=== PATIENT | male | born 1955 | race Two or more races ===

== ENCOUNTER 2024-08-22 19:12 | Emergency (ER) | payer OTHER ==
[~2024-08-22] VITALS: Ht 203.2 cm; Wt 135.9 kg
--- NOTE | 2024-08-22 19:48 | ED.PDOC ---
Keily. trauma (HPI) HPI Comments This patient is a very pleasant 69 y.o male presents to the ED for an evaluation of multiple lacerations and abrasions s/p fall today. Patient reports a trip and fall, fell face forward onto asphalt and concrete. Patient presents with laceration to right wrist, cleaned and wrapped upon ED arrival, an abrasion to nose bridge and tear to the left upper eyebrow. Patient denies any LOC, states head/face pain is at a 1/10 at this time. Patient is up to date with tetanus vaccine. Chief Complaint: Fall Injury Time Seen by MD: 19:40 Reviewed notes: Nurses Notes, Medications, Allergies Allergies: Coded Allergies: NO KNOWN ALLERGIES (Unverified , 08/22/24) Information Source: Patient Mode of Arrival: Ambulatory Severity: Moderate Timing: Hours Duration: Since onset Prehospital treatment: None Location: (R) Wrist Location of laceration: Other (Right wrist) Mechanism: Fall Associated signs and symtoms: None Past Medical History PAST MEDICAL HISTORY: Denies Surgical History: Denies all surgeries Family History Family History: Reviewed,noncontributory to illness Social History Smoker: Non-Smoker Alcohol: Denies ETOH Use Drugs: Denies Drug Use Lives In: Home Constitutional: denies: chills, diaphoresis, fatigue, fever, malaise, sweats, weakness, others EENTM: denies: blurred vision, double vision, ear bleeding, ear discharge, ear drainage, ear pain, ear ringing, eye pain, eye redness, hearing loss, mouth pain, mouth swelling, nasal discharge, nose bleeding, nose congestion, nose pain, photophobia, tearing, throat pain, throat swelling, voice changes, others Respiratory: denies: cough, hemoptysis, orthopnea, SOB at rest, shortness of breath, SOB with excertion, stridor, wheezing, others Cardiovascular: denies: chest pain, dizzy spells, diaphoresis, Dyspnea on exertion, edema, irregular heart beat, left arm pain, lightheadedness, palpitations, PND, syncope, others Gastrointestinal: denies: abdomen distended, abdominal pain, blood streaked bowels, constipated, diarrhea, dysphagia, difficulty swallowing, hematemesis, melena, nausea, poor appetite, poor fluid intake, rectal bleeding, rectal pain, vomiting, others Genitourinary: denies: burning, dysuria, flank pain, frequency, hematuria, incontinence, penile discharge, penile sore, pain, testicle pain, testicle swelling, urgency, others Neurological: denies: dizziness, fainting, headache, left sided numbness, left sided weakness, numbness, paresthesia, pre-existing deficit, right sided numbness, right sided weakness, seizure, speech problems, tingling, tremors, weakness, others Musculoskeletal: denies: back pain, gout, joint pain, joint swelling, muscle pain, muscle stiffness, neck pain, others Integumetry: reports: laceration (Right wrist), others (nose bridge abrasion ); denies: bruises, change in color, change in hair/nails, dryness, lesions, lumps, rash, wounds Allergic/Immunocompromised: denies: Difficulty Healing, Frequent Infections, Hives, Itching, others Hematologic/Lymphatic: denies: anemia, blood clots, easy bleeding, easy bruising, swollen glands, others Endocrine: denies: excessive hunger, excessive sweating, excessive thirst, excessive urination, flushing, intolerance to cold, intolerance to heat, unexplained weight gain, unexplained weight loss, others Psychiatric: denies: anxiety, bipolar disorder, depression, hopeless, panic disorder, schizophrenia, sleepless, suicidal, others All Other Systems: Reviewed and Negative Physical Exam General Appearance: Mild Distress (Due to right wrist pain.), Normal HEENT: Head (Patient displays a small half-dollar sized abrasion to the central forehead with localized edema and erythema. No skull depressions or deformities.), Normal ENT Inspection, Pharynx Normal, TMs Normal Neck: Full Range of Motion, Non-Tender, Normal, Normal Inspection Respiratory: Chest Non-Tender, Lungs Clear, No Accessory Muscle Use, No Respiratory Distress, Normal Breath Sounds Cardiovascular: No Edema, No JVD, No Murmur, No Gallop, Normal Peripheral Pulses, Regular Rate/Rhythm Breast Exam: Deferred Gastrointestinal: No Organomegaly, Non Tender, No Pulsatile Mass, Normal Bowel Sounds, Soft Genitalia: Deferred Pelvic: Deferred Rectal: Deferred Extremities: Other (Right wrist reveals a 4 cm deep laceration to the lateral aspect of the ventral wrist. No tendon involvement. No active bleed. Distal neurovascularly intact. Full range of motion displayed.) Musculoskeletal : Apperance: Normal Neurologic: Alert, No Motor Deficits, Normal Affect, Normal Mood, No Sensory Deficits Cerebellar Function: Normal Reflexes: Normal Skin: Lacerations (right wrist, left eyebrow and abrasion to the nose bridge ) Lymphatic: No Adenopathy Was a procedure done? Was a procedure done?: Yes Sedation Sedation?: No Other Procedure Notes 8 cc of 1% lidocaine was utilized for local anesthesia of the right wrist. Sterile field was placed. Copious irrigation performed. Eight 4-0 Ethilon sutures were utilized for wound approximation. Sutures were placed in a simple interrupted fashion. Minimal blood loss. Patient tolerated procedure well. Topical antibiotics, clean dressing and splint applied. Differential Diagnosis Multiple Trauma: Closed Head Injury, Abrasions, Contusion, Hematoma, Laceration, Other (Wrist fracture) X-Ray, Labs, Meds, VS Vital Signs Date Time Temp Pulse Resp B/P (MAP) Pulse Ox O2 Delivery O2 Flow Rate FiO2 08/22/24 21:57 98.2 95 17 118/77 (91) 96 98.2 08/22/24 21:57 95 17 96 Room Air 08/22/24 19:30 98.7 108 18 100/70 (80) 96 Current Medications Medications (Trade) Dose Ordered Sig/Heena Route Start Time Stop Time Status Last Admin Neomycin/ Polymyxin/ Bacitracin (Triple Antibiotic) 1 applic ONCE ONCE TOP 08/22/24 21:30 08/22/24 21:31 DC 08/22/24 21:33 X-Ray, Labs, Meds, VS Comment All studies performed the ED were evaluated by me personally. Imaging studies of right wrist were unremarkable for any fractures. Patient sustained a head contusion and wrist laceration. Advised patient utilize antibiotics as directed until completion as well as pain medication as needed. Patient should return to ED or primary care provider in 10 days for re-evaluation and probable suture removal. Time of 1ST Reevaluation: 22:23 Reevaluation 1ST: Improved Consultation: PCP Patient Education/Counseling: Diagnosis, Treatment, Prognosis Family Education/Counseling: Diagnosis, Treatment, No Family Present Departure 1 Departure Time of Disposition: 22:23 Impression: Primary Impression: Fall Additional Impressions: Head trauma Forehead contusion Wrist laceration Wrist sprain Disposition: HOME / SELF CARE / HOMELESS Condition: Stable Additional Instructions: Advise utilizing antibiotics as directed until completion as well as pain medication as needed. Patient should return to primary care provider or ED in 10 days for re-evaluation and probable suture removal. e-Prescriptions Ibuprofen Micronized (Ibuprofen) 800 Mg Tab 800 MG PO Q8HP PRN, #20 TAB Prov: CECELIA WALKER PAC 08/22/24 Cephalexin (KEFLEX CAPSULE) 250 Mg Cp 1 CAP PO QID for 7 Days, #28 CAP Prov: CECELIA WALKER PAC 08/22/24 Discharged With: Self, Friend Critical Care Note Critical Care Time?: No Stability Stability form required: No I personally scribed for CECELIA WALKER PAC ([email or web address]) on 08/22/24 at 19:48. Electronically submitted by Rima Ruth ([facility]). CECELIA WALKER PAC Aug 22, 2024 19:48
[2024-08-22] MEDS: LIDOCAINE 1% HCL (LOCAL ANESTH.) INJ 20ML MDV ID ONE (20:52)
[2024-08-22] MEDS: NEOMYCIN-BACITRACIN-POLYM UNITDOSE PKG TOP OINT TOP ONE (21:33)
--- NOTE | 2024-08-22 21:52 | DVH ---
EXAM: XY R WRIST 3+ VIEW XRAY CLINICAL HISTORY: Fall/trauma COMPARISON: None TECHNIQUE: XY R WRIST 3+ VIEW XRAY Findings/Impression: 3 views of the right wrist. Suboptimal visualization of the fine osseous and soft tissue details due to the overlying fibrous spl int. There is no evidence of an acute fracture, dislocation, blastic, or lytic lesions. Mild soft tissue edema.
[2024-08-22] MEDS ORDERED: IBUP-1455 PO (22:28)
[2024-08-22] MEDS ORDERED: CEPH250C PO (22:28)
[2024-08-22 23:28] VITALS: BP 125/75; PULSE 98; RESP 18; TEMP 98.4; O2SAT 96
== END 2024-08-22 23:36 | disposition home or self-care (01) ==
LOC: ER 19:12
DX: S61.511A Laceration without foreign body of right wrist, initial encounter (principal); S00.83XA Contusion of other part of head, initial encounter; W01.0XXA Fall on same level from slipping, tripping and stumbling without subsequent striking against object, initial encounter; Y93.89 Activity, other specified; Y92.89 Other specified places as the place of occurrence of the external cause; Y99.8 Other external cause status
CPT/HCPCS: 12002; 29125; 73110; 99283; J2003